=== PATIENT | female | born 1965 | race African-American/Black ===

== ENCOUNTER 2021-09-22 09:12 | Emergency (ER) | payer MEDICAID ==
[~2021-09-22] VITALS: Ht 160 cm; Wt 100.0 kg
[~2021-09-22 09:12] MED LIST: CARB15DR91 EACH EAR; IBUP-1051 PO
[2021-09-22 09:19] VITALS: BP 125/63
[2021-09-22] MEDS ORDERED: ibuprofen tablet 400 MG TABLET PO ONE (10:55)
[2021-09-22] MEDS ORDERED: ERYT1OIN6 RIGHTEYE (10:58)
--- NOTE | 2021-09-22 12:29 | NUR ---
PC TO THE PT TO UPDATE ON NEGATIVE RESULTS. VM FULL, UNABLE TO LEAVE MESSAGE
== END 2021-09-22 11:42 | disposition home or self-care (01) ==
LOC: ER 09:13
DX: H10.31 Unspecified acute conjunctivitis, right eye (principal); Z20.822 Contact with and (suspected) exposure to COVID-19; J06.9 Acute upper respiratory infection, unspecified; J45.909 Unspecified asthma, uncomplicated; F31.9 Bipolar disorder, unspecified; Z11.52 Encounter for screening for COVID-19; Z56.0 Unemployment, unspecified
CPT/HCPCS: 87635; 99283; C9803

== ENCOUNTER 2021-11-10 09:56 | Emergency (ER) | payer MEDICAID ==
[~2021-11-10] VITALS: Ht 160 cm; Wt 81.8 kg
[2021-11-10 10:04] VITALS: BP 138/72
[2021-11-10] MEDS ORDERED: proparacaine 0.5% ophthalmic drops 15ml EACHEYE ONE (10:55)
== END 2021-11-10 11:30 | disposition home or self-care (01) ==
LOC: ER 09:56
DX: H57.13 Ocular pain, bilateral (principal); J45.909 Unspecified asthma, uncomplicated; F31.9 Bipolar disorder, unspecified; Z56.0 Unemployment, unspecified
CPT/HCPCS: 99282

== ENCOUNTER 2022-06-05 04:46 | Emergency (ER) | payer MEDICAID ==
[~2022-06-05] VITALS: Ht 160 cm; Wt 100.0 kg
[2022-06-05 04:50] VITALS: BP 141/72
== END 2022-06-05 08:19 | disposition left against medical advice (07) ==
LOC: ER 04:47
DX: R06.02 Shortness of breath (principal); R50.9 Fever, unspecified; Z53.21 Procedure and treatment not carried out due to patient leaving prior to being seen by health care provider
CPT/HCPCS: 99281